=== PATIENT | female | born 1960 | race Caucasian/White ===

== ENCOUNTER 2021-01-06 08:45 | Day surgery (SDC) | payer OTHER ==
[~2021-01-06] VITALS: Ht 162.6 cm; Wt 82.2 kg
[~2021-01-06 08:45] MED LIST: BEET JUICE PO; BLOOD PRESSURE MED; DULO60 PO; Eql Vision For1 EACH PO; HYDACE5; IBUP200 PO; LISI20 PO; LISI5 PO; MAGNESIUM PO; NAPR550 PO; OXYACE5T PO; PROG100 PO; RXNAPNA550 PO; TRIA50 PO; TURMERIC500 M2 PO; VITAMIN D310 MC4 PO
[2021-01-06] MEDS ORDERED: CYCLOBENZAPRINE5 MG PO (09:11)
--- NOTE | 2021-01-06 10:23 | NUR ---
Ambulatory in Day Surgery. Patient up to Ambulate independently. Gait steady. History, Chart, Medications and Allergies reviewed before start of procedure. Lungs clear T/O to Auscultation. Patient confirms NPO status and agrees with scheduled surgery. Pre-Op teaching done. Pt verbalizes understanding.PT'S DAUGHTER SERGEY AT BEDSIDE.
--- NOTE | 2021-01-06 15:03 | NUR ---
PATIENT DECLINED STRAIGHT CATH IN PACU AFTER BLADDER SCAN OF 376. AGAIN DECLINED STRAIGHT CATH WHEN SHE ARRIVED TO ROOM. EXPLAINED RISK OF URINE RETENTION AND REASONS FOR STRAIGHT CATH AND PATIENT STATED SHE WANTS TO WAIT UNTIL SHE GETS UP TO USE BATHROOM. SHE DID ALSO STATE SHE WOULD BE WILLING TO USE BEDPAN IF NECESSARY EVEN THOUGH SHE DID NOT FEEL THE URGE TO GO AT THIS TIME. WILL CONTINUE TO MONITOR WITH BLADDER SCAN.
--- NOTE | 2021-01-06 17:19 | NUR ---
SHIFT SUMMARY PATIENT NEW ADMIT TO UNIT POST OP L TKA. ALERT AND ORIENTED. OCCASIONALLY ANXIOUS AND TEARFUL. MOSTLY PLEASANT AND COOPERATIVE. EASILY REASSURED. MEDICATED WITH PO PAIN MEDS AND IV MORPHINE FOR BREAKTHROUGH. AMBULATED IN ANDERSON WITH PHYSICAL THERAPY USING FWW AND GAIT BELT. VOIDING WELL, SALINE LOCKED. TOLERATING REGULAR DIET. WILL REPORT TO GIFT SHOP ASSISTANT RN.
[2021-01-07 05:02] LABS: BASOPHILS ABSOLUTE AUTO 0.03 K/mm3 (0.00-0.23); BASOPHILS PERCENT AUTO 0 % (0-2); EOSINOPHILS PERCENT AUTO 0 % (0-6); Hemoglobin 12.1 g/dL (11.5-16.0); IMMATURE GRAN ABSOLUTE AUTO 0.04 K/mm3 (0.00-0.10); IMMATURE GRAN PERCENT AUTO 0 % (0-1); LYMPHOCYTES ABSOLUTE AUTO 1.27 K/mm3 (0.84-5.20); LYMPHOCYTES PERCENT AUTO 10 % (21-46); MONOCYTES ABSOLUTE AUTO 0.84 K/mm3 (0.16-1.47); MONOCYTES PERCENT AUTO 7 % (4-13); Mean Corpuscular HGB Conc 33.6 g/dL (31.5-36.5); Mean Corpuscular Volume 92 fL (80-100); Mean Platelet Volume 9.3 fL (9.1-12.4); NEUTROPHILS ABSOLUTE AUTO 10.21 K/mm3 (1.96-9.15); NEUTROPHILS PERCENT AUTO 82 % (41-73); Platelet Count 185 K/mm3 (150-400); RDW Coefficient Variation 11.9 % (11.7-14.2); White Blood Cell Count 12.39 K/mm3 (4.00-11.30)
--- NOTE | 2021-01-07 05:15 | NUR ---
SHIFT SUMMARY PT AOX4. POD1 L TKA. PT REPORTS SIGNIFICANT PAIN LAST NIGHT. PAIN MANAGED WITH MORPHINE, TYLENOL, TORADOL AND RADHA. PAIN HAS IMPROVED THIS MORNING. PT WAS ALSO ANXIOUS INTERMITTENTLY. AMBULATES IN THE HALLWAY X1 LAST NIGHT, 1 SBA, FWW AND GB. USED THE BATHROOM SEVERAL TIMES, VOIDING BUT FELT NAUSEATED AND DIZZY X 1 BEFORE BED WHILE IN THE BATHROOM. PT MEDICATED WITH ZOFRAN X1. L KNEE WRAPPED WITH BULKY DRESSING AND SHAR WRAP, PT DENIES N/T. POLAR PACK AND PAS IN PLACED WHILE LLE IS ELEVATED. TOLERATING PO INTAKE. USE CALL LIGHT APPROPRIATELY. CALL LIGHT WITHIN REACH.
[2021-01-07 05:28] LABS: Anion Gap 7 mmol/L (6-16); Blood Urea Nitrogen 21 mg/dL (8-24); Bun/Creatinine Ratio 25.6 (12.0-20.0); CO2, Blood 25 mmol/L (21-32); Calcium, Blood 8.1 mg/dL (8.5-10.1); Chloride, Blood 99 mmol/L (98-108); Creatinine, Blood 0.82 mg/dL (0.40-1.00); Glomerular Filtration Rate >60 (60-); Glucose, Blood 115 mg/dL (70-99); Magnesium, Blood 1.6 mg/dL (1.6-2.4); Potassium, Blood 4.1 mmol/L (3.5-5.5); Sodium, Blood 131 mmol/L (136-145)
[2021-01-07] MEDS ORDERED: ASPI81CH PO (09:59)
[2021-01-07] MEDS ORDERED: ROXICODONE5 MG PO (10:00)
[2021-01-07] MEDS ORDERED: PROM25 PO (10:01)
[2021-01-07] MEDS ORDERED: SULTRIDS PO (10:02)
--- NOTE | 2021-01-07 12:58 | NUR ---
1215 DISCHARGE REVIEWED DC INSTRUCTIONS WITH PATIENT AND PATIENTS DAUGHTER AND QUESTIONS ANSWERED. PT AND HER DAUGHTER VERBALIZE UNDERSTANDING OF ACTIVITY, USE OF WALKER, DRESSING CHANGES, MEDICATIONS, ICE AND ELEVATION. PT TEARFUL AT TIMES. PT REPORTS CURRENT PAIN LEVEL OF 3-4/10. PT CANDIDO REG DIET WITHOUT NAUSEA, AMBULATING IN ROOM AND ANDERSON WITH SBA AND USE OF WALKER. VOIDING CLEAR YELLOW URINE. PT AND HER DAUGHTER HAVE NO CONCERNS ABOUT BEING DISCHARGED TO HOME.
== END 2021-01-07 12:15 | disposition home or self-care (01) ==
LOC: ORSCMMR 08:45 → SURS 14:26 → ORSCMMR 01-07 12:15
PROVIDERS: Orthopaedic Surgery
PROC: 8E0YXBZ Computer Assisted Procedure of Lower Extremity (ICD-10-PCS; principal; 2021-01-06 10:45)
PROC: 0SRD0J9 Replacement of Left Knee Joint with Synthetic Substitute, Cemented, Open Approach (ICD-10-PCS; principal; 2021-01-06 10:45)
DX: M17.12 Unilateral primary osteoarthritis, left knee (principal); I10 Essential (primary) hypertension; Z87.891 Personal history of nicotine dependence; E66.01 Morbid (severe) obesity due to excess calories; Z68.37 Body mass index [BMI] 37.0-37.9, adult; F41.9 Anxiety disorder, unspecified; F43.10 Post-traumatic stress disorder, unspecified; Z79.899 Other long term (current) drug therapy
CPT/HCPCS: 36415; 73560-LT; 80048; 83735; 85025; 97110; 97112; 97116; 97161; 97530; A9270; C1713; C1776; J0171; J0690; J0735; J1100; J1885; J2250; J2270; J2370; J2405; J2704; J2795; J3010; J7120

== ENCOUNTER 2021-11-10 06:27 | Day surgery (SDC) | payer OTHER ==
[~2021-11-10] VITALS: Ht 162.6 cm; Wt 97.5 kg
[~2021-11-10 06:27] MED LIST changes: +ASPI81CH PO; +CYCLOBENZAPRINE5 MG PO; +PROM25 PO; +ROXICODONE5 MG PO; +SULTRIDS PO
--- NOTE | 2021-11-10 07:07 | NUR ---
[employer] EXTENSION WORKER X3 AMPULES USED TO CLEAN NARES BILAT PER DR PABLITO NEWELL. CALF PAS AND KNEE HIGH LUISA HOSE APPLIED TO LLE.
--- NOTE | 2021-11-10 08:47 | NUR ---
11/10/21 0847 Abdoulaye Brower 1G GIVEN IN PRE-OP @[id number]
--- NOTE | 2021-11-10 11:57 | NUR ---
PT ARRIVED TO UNIT AT APROX 1130 FROM PACU. PT REPORTS SENSATION IN BLE AND IS ABLE TO MOVE THEM ON COMMAND. DENIES PAIN IN R KNEE.
--- NOTE | 2021-11-10 17:54 | NUR ---
SHIFT SUMMARY PT POD 0 R TKA. GAUZE/SHAR C/D/I. PT PAIN MANAGED WITH SCHEDULED TYLENOL AND TORADOL. MEDICATED ONCE WITH ROXICODNE FOR BREAKTHRU PAIN. PT DID C/O MUSCLE SPASMS IN L SHOULDER/NECK, MEDICATED WITH FLEXERIL PER HOME MEDICATION ORDERS. PT WORKED WITH PT. UP TO BATHROOM USING FWW.
--- NOTE | 2021-11-11 03:45 | NUR ---
SHIFT SUMMARY POD1 R TKA, A/OX4, VSS, TOLERATING PO, VOIDING WELL, PAIN WELL MANAGED, ABLE TO MAKE NEEDS KNOWN, AMBULED IN THE ANDERSON THIS SHIFT AND AMBULES TO THE BATHROOM WHEN NEEDED c ASSISTANCE/FWW/GB IN PLACE. NO ACUTE EVENTS THIS SHIFT, CALL LIGHT IN REACH, WILL CTM AND REPORT TO ONCOMING DAY RN.
[2021-11-11 05:17] LABS: BASOPHILS ABSOLUTE AUTO 0.01 K/mm3 (0.00-0.23); BASOPHILS PERCENT AUTO 0 % (0-2); EOSINOPHILS ABSOLUTE AUTO 0.01 K/mm3 (0.00-0.68); EOSINOPHILS PERCENT AUTO 0 % (0-6); Hematocrit 31.4 % (33.0-51.0); Hemoglobin 10.3 g/dL (11.5-16.0); IMMATURE GRAN ABSOLUTE AUTO 0.02 K/mm3 (0.00-0.10); IMMATURE GRAN PERCENT AUTO 0 % (0-1); LYMPHOCYTES ABSOLUTE AUTO 1.37 K/mm3 (0.84-5.20); LYMPHOCYTES PERCENT AUTO 15 % (21-46); MONOCYTES ABSOLUTE AUTO 0.91 K/mm3 (0.16-1.47); MONOCYTES PERCENT AUTO 10 % (4-13); Mean Corpuscular HGB 31.5 pg (26.0-34.0); Mean Corpuscular HGB Conc 32.8 g/dL (31.5-36.5); Mean Corpuscular Volume 96 fL (80-100); Mean Platelet Volume 9.5 fL (9.1-12.4); NEUTROPHILS ABSOLUTE AUTO 6.56 K/mm3 (1.96-9.15); NEUTROPHILS PERCENT AUTO 74 % (41-73); Platelet Count 173 K/mm3 (150-400); RDW Coefficient Variation 13.1 % (11.7-14.2); RDW Standard Deviation 45.6 fL (35.1-46.3); Red Blood Cell Count 3.27 M/mm3 (3.80-5.20); White Blood Cell Count 8.88 K/mm3 (4.00-11.30)
[2021-11-11 05:44] LABS: Bun/Creatinine Ratio 20.6 (12.0-20.0); Calcium, Blood 8.1 mg/dL (8.5-10.1); Creatinine, Blood 0.87 mg/dL (0.40-1.00); Magnesium, Blood 2.1 mg/dL (1.6-2.4)
[2021-11-11] MEDS ORDERED: ASPI81CH PO (08:05)
[2021-11-11] MEDS ORDERED: SULTRIDS PO (08:06)
[2021-11-11] MEDS ORDERED: OXAYDO5 M1 PO (08:06)
--- NOTE | 2021-11-11 12:54 | NUR ---
DISCHARGE SUMMARY PT POD #1 FOR R TOTAL KNEE. DRESSING CHANGED TO AQUACEL BY SURGEON AND CURRENT DRESSING CDI. PT WORKED WELL WITH PHYSICAL THERAPY. MEDICATED FOR PAIN PER EMR. PT TO DC HOME WITH FAMILY WRITTEN PRESCRIPTIONS PROVIDED TO PATIENT.
== END 2021-11-11 13:08 | disposition home or self-care (01) ==
LOC: ORSCMMR 06:27 → ORD 07:30 → SURS 10:57 → ORSCMMR 11-11 13:08
PROVIDERS: Orthopaedic Surgery
PROC: 0SRC0J9 Replacement of Right Knee Joint with Synthetic Substitute, Cemented, Open Approach (ICD-10-PCS; principal; 2021-11-10 07:30)
PROC: 8E0YXBZ Computer Assisted Procedure of Lower Extremity (ICD-10-PCS; principal; 2021-11-10 07:30)
DX: M17.11 Unilateral primary osteoarthritis, right knee (principal); Z96.652 Presence of left artificial knee joint; Z87.891 Personal history of nicotine dependence; E66.9 Obesity, unspecified; Z68.35 Body mass index [BMI] 35.0-35.9, adult; E03.9 Hypothyroidism, unspecified; F41.8 Other specified anxiety disorders; I10 Essential (primary) hypertension; F43.10 Post-traumatic stress disorder, unspecified; Z79.899 Other long term (current) drug therapy
CPT/HCPCS: 36415; 73560-RT; 80048; 83735; 85025; 97110; 97116; 97162; A9270; C1713; C1776; J0171; J0690; J0735; J1100; J1885; J2250; J2370; J2405; J2704; J2795; J3010; J3370; J7120

== ENCOUNTER → 2024-10-14 | Outpatient (CLI) | payer OTHER ==
[~2024-10-14] MED LIST changes: +OXAYDO5 M1 PO
[2024-10-14 17:16] LABS: Anion Gap 6.0 mmol/L (3-11); Blood Urea Nitrogen 18.0 mg/dL (8-24); CO2, Blood 28.0 mmol/L (21-32); Calcium, Blood 8.8 mg/dL (8.5-10.1); Chloride, Blood 106.0 mmol/L (98-108); Creatinine, Blood 0.87 mg/dL (0.40-1.00); Glucose, Blood 99.0 mg/dL (70-99); Potassium, Blood 4.3 mmol/L (3.5-5.5); Sodium, Blood 136.0 mmol/L (136-145)
== END | disposition home or self-care (01) ==
LOC: LAB SHORT 11:45 → LAB 11:45
PROVIDERS: Hospitalist
DX: I10 Essential (primary) hypertension (principal)
CPT/HCPCS: 80048